=== PATIENT | male | born 1990 | race American Indian/Alaskan Native ===

== ENCOUNTER 2016-12-27 21:14 | Emergency (ER) | payer OTHER ==
[2016-12-27 21:22] VITALS: BP 115/77
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
[2016-12-27] MEDS ORDERED: MOTRIN PO ONE (23:56)
[2016-12-27] MEDS ORDERED: FLEXERIL PO ONE (23:56)
== END 2016-12-28 00:04 | disposition home or self-care (01) ==
LOC: ED 21:14
DX: M25.512 Pain in left shoulder (principal); V89.2XXA Person injured in unspecified motor-vehicle accident, traffic, initial encounter; Y93.9 Activity, unspecified; Y99.9 Unspecified external cause status; Y92.410 Unspecified street and highway as the place of occurrence of the external cause
CPT/HCPCS: 99282